=== PATIENT | male | born 1945 | race Caucasian/White ===

== ENCOUNTER → 2024-05-03 12:51 | Outpatient (CLI) | payer OTHER, SELFPAY ==
--- NOTE | 2024-05-03 12:54 | DI.RAD.S_ITS ---
PROCEDURE: XR DEXA AXIAL SKELETON INDICATIONS: WEDGING OF VERTEBRA COMPARISON: None. FINDINGS: Lumbar Spine: Bone mineral density 1.23 g/cm2, T score 1.8,. Left Hip: Bone mineral density 0.84 g/cm2, T score -0.8,. Left Femoral Neck: Bone mineral density 0.72 g/cm2, T score -1.2,. Right Hip: Bone mineral density 0.85 g/cm2, T score -0.8,. Right Femoral Neck: Bone mineral density 0.74 g/cm2, T score -1,. Fracture Risk Calculation (when applicable): 10-year fracture risk of a major osteoporotic fracture 13% and of a hip fracture 8.8%. (T score greater or equal to -1.0 to: NORMAL) (T score from -1.1 to -2.4: OSTEOPENIA) (T score less than or equal to -2.5: OSTEOPOROSIS) IMPRESSION: Osteopenia, with fracture risks as above. Follow-up guidelines as follows: Osteoporosis: Consider a repeat DEXA and Vertebral Fracture Assessment (VFA) exam in 2 years or sooner if medically necessary, to reassess this patient's status. Osteopenia: Consider a repeat DEXA in 2-3 years to reassess this patient's status, or if there is a new clinical indication. Normal: Consider a repeat DEXA in 5 years or sooner, or if there is a new clinical indication. All treatment decisions require clinical judgment and consideration of individual patient factors, including patient preferences, comorbidities, previous drug use, risk factors not captured in the FRAX model (e.g., frailty, falls, vitamin D deficiency, increased bone turnover, interval significant decline in bone density ) and possible under- or over-estimation of fracture risk by FRAX. In addition, the [employer] Guide recommends that FDA-approved medical therapies be considered in postmenopausal women and men age >= 50 years with a: * Hip or vertebral (clinical or morphometric) fracture * T-score of <=-2.5 at the spine or hip * Ten-year fracture probability by FRAX of >= 3% for hip fracture or >=20% for major osteoporotic fracture. People with diagnosed cases of osteoporosis or at high risk for fracture should have regular bone mineral density tests. For patients eligible for Medicare, routine testing is allowed once every 2 years. The testing frequency can be increased to one year for patients who have rapidly progressing disease, those who are receiving or discontinuing medical therapy to restore bone mass, or have additional risk factors. Dictated by: Brannon German M.D. on 05/03/2024 at 16:54 Approved by: Brannon German M.D. on 05/03/2024 at 16:55
== END ==
PROVIDERS: Family Provider Family Medicine; PCP Family Medicine; Referring Provider Family Medicine; Visit Provider Family Medicine
DX: M85.89 Other specified disorders of bone density and structure, multiple sites; M48.55XA Collapsed vertebra, not elsewhere classified, thoracolumbar region, initial encounter for fracture
CPT/HCPCS: 77080

== ENCOUNTER → 2024-10-06 15:15 | Outpatient (CLI) | payer MEDICARE, OTHER, SELFPAY ==
--- NOTE | 2024-10-06 15:18 | DI.US.S_ITS ---
PROCEDURE: US SOFT TISSUE HEAD AND NECK INDICATIONS: NECK LUMP TECHNIQUE: Real-time scanning was performed of the neck region of interest, with image documentation. COMPARISON: None. FINDINGS: In the area of concern in the right posterior neck, there is a 3.2 x 2.0 x 6.2 cm isoechoic mass without internal vascularity. 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 Other benign and malignant etiologies are not entirely excluded. Recommend clinical correlation and follow-up, if there is concern for growth, repeat imaging is recommended. Dictated by: Paresh Duff M.D. on 10/06/2024 at 18:14 Approved by: Paresh Duff M.D. on 10/06/2024 at 18:15
== END ==
PROVIDERS: Family Provider Family Medicine; PCP Family Medicine; Referring Provider Family Medicine; Visit Provider Family Medicine
DX: R22.1 Localized swelling, mass and lump, neck (principal)
CPT/HCPCS: 76536